=== PATIENT | male | born 1975 | race African-American/Black ===

== ENCOUNTER 2023-11-27 22:58 | Emergency (ER) | payer SELFPAY ==
[2023-11-27] MEDS ORDERED: GABAPENTIN 300 MG CAP ONE (23:06)
[2023-11-27] MEDS ORDERED: KETOROLAC 30 MG/ML INJ ONE (23:07)
[2023-11-27] MEDS ORDERED: dexAMETHasone 10 MG/ML VIAL ONE (23:07)
[2023-11-28] MEDS ORDERED: HYDROCODONE/APAP 7.5/325 MG TAB ONE (00:22)
[2023-11-28] MEDS ORDERED: LIDOCAINE 4% PATCH ONE (00:22)
--- NOTE | 2023-11-28 00:52 | ER ---
Nurse's Notes [facility] Name: Sandra Rodriguez Age: 48 yrs Sex: Male : 1975 Arrival Date: 11/27/2023 Time: 22:58 Bed 17 Private MD: Diagnosis: Lumbago with sciatica, left side Presentation: 11/26 23:01 Chief complaint: EMS states: left sided pain, extending from buttocks to hamstring tm6 10/10. Coronavirus screen: Vaccine status: Patient reports receiving the 2nd dose of the covid vaccine. Ebola Screen: Patient negative for fever greater than or equal to 101.5 degrees Fahrenheit, and additional compatible Ebola Virus Disease symptoms Patient denies exposure to infectious person. Patient denies travel to an Ebola-affected area in the 21 days before illness onset. No symptoms or risks identified at this time. Initial Sepsis Screen: Does the patient meet any 2 criteria? No. Patient's initial sepsis screen is negative. Does the patient have a suspected source of infection? No. Patient's initial sepsis screen is negative. Risk Assessment: Do you want to hurt yourself or someone else? Patient reports no desire to harm self or others. Onset of symptoms was November 27, 2023. 23:01 Method Of Arrival: EMS: [facility] tm6 23:01 Acuity: PHILLIP 3 tm6 Triage Assessment: 23:02 General: Appears distressed, Behavior is cooperative. Pain: Complains of pain in tm6 buttocks and left leg Pain does not radiate. Pain currently is 10 out of 10 on a pain scale. Quality of pain is described as sharp, shooting, stabbing. EENT: No signs and/or symptoms were reported regarding the EENT system. Neuro: Level of Consciousness is awake, alert, obeys commands, Oriented to person, place, time, situation. Cardiovascular: Patient's skin is warm and dry. Respiratory: Airway is patent Respiratory effort is even, unlabored, Respiratory pattern is regular, symmetrical. GI: No signs and/or symptoms were reported involving the gastrointestinal system. Abdomen is flat, non-distended. : No deficits noted. No signs and/or symptoms were reported regarding the genitourinary system. Derm: No signs and/or symptoms reported regarding the dermatologic system. Musculoskeletal: Reports pain in buttocks and left leg Pain is 10 out of 10 on a pain scale. Historical: - Allergies: 23:02 No Known Allergies; tm6 - PMHx: 23:02 None; tm6 - PSHx: 23:02 Appendectomy; tm6 - Immunization history:: Client reports receiving the 2nd dose of the Covid vaccine. - Infectious Disease History:: Denies. - Social history:: Smoking status: Patient reports the use of cigarette tobacco products, smokes one-half pack cigarettes per day, Patient uses alcohol, occasionally. Screenin:04 [facility] ED Fall Risk Assessment (Adult) History of falling in the last 3 months, tm6 including since admission No falls in past 3 months (0 pts) Confusion or Disorientation No (0 pts) Intoxicated or Sedated No (0 pts) Impaired Gait No (0 pts) Mobility Assist Device Used No (0 pt) Altered Elimination No (0 pt) Score/Fall Risk Level 0 - 2 = Low Risk Oriented to surroundings, Maintained a safe environment, Educated pt \T\ family on fall prevention, incl call for assistance when getting out of bed. Abuse screen: Denies threats or abuse. Denies injuries from another. Nutritional screening: No deficits noted. Tuberculosis screening: No symptoms or risk factors identified. Assessment: 23:04 Reassessment: see triage assessment. tm6 11/27 00:31 Reassessment: Patient and/or family updated on plan of care and expected duration. Pain tm6 level reassessed. Patient is alert, oriented x 3, equal unlabored respirations, skin warm/dry/pink. 01:02 Reassessment: Patient and/or family updated on plan of care and expected duration. Pain tm6 level reassessed. Patient is alert, oriented x 3, equal unlabored respirations, skin warm/dry/pink. Vital Signs: 11/26 23:01 BP 189 / 98; Pulse 68; Resp 19; Temp 98(O); Pulse Ox 100% on R/A; Weight 79.38 kg; tm6 Height 5 ft. 8 in. ; Pain 10/10; 11/27 00:31 BP 149 / 100; Pulse 73; Pulse Ox 98% on R/A; Pain 8/10; tm6 01:01 BP 138 / 88; Pulse 73; Resp 17; Temp 98; Pulse Ox 98% on R/A; Pain 5/10; tm6 11/26 23:01 Body Mass Index 26.61 (79.38 kg, 172.72 cm) tm6 11/26 23:01 Pain Scale: Adult tm6 11/27 00:31 Pain Scale: Adult tm6 01:01 Pain Scale: Adult tm6 ED Course: 11/26 22:58 Patient arrived in ED. sb4 22:58 Umu Watson PA-C is PHCP. sb4 22:58 Bradley Gutierrez MD is Attending Physician. sb4 23:00 Mona Winn, CORI is Primary Nurse. tm6 23:02 Triage completed. tm6 23:02 Arm band placed on right wrist. tm6 23:04 Patient has correct armband on for positive identification. Bed in low position. Call tm6 light in reach. Side rails up X2. Provided Education on: use of call ruiz. Client placed on continuous cardiac and pulse oximetry monitoring. NIBP monitoring applied. Pulse ox on. NIBP on. Door closed. Noise minimized. Pillow given. 11/27 01:08 No provider procedures requiring assistance completed. Patient did not have IV access tm6 during this emergency room visit. Administered Medications: 11/26 23:15 Drug: Dexamethasone IM 10 mg IM once Route: IM; Site: right deltoid; tm6 23:15 Drug: Ketorolac IM 30 mg IM once Route: IM; Site: left deltoid; tm6 23:15 Drug: Gabapentin PO 300 mg PO once Route: PO; tm6 11/27 00:29 Drug: Lidoderm Topical Patch 5 % (700 mg/patch) 1 patches Topical once; leave on for 12 tm6 hours; cover most painful area; may cut into smaller pieces Route: Topical; Site: affected area; 00:29 Drug: Hydrocodone-Acetaminophen PO (7.5 mg-325 mg) 1 tabs PO once Route: PO; tm6 Medication: 11/26 23:04 VIS not applicable for this client. tm6 Outcome: 11/27 00:52 Discharge ordered by . sb4 01:08 Discharged to home via wheelchair, with family, tm6 01:08 Condition: stable 01:08 Discharge instructions given to patient, Instructed on discharge instructions, follow up and referral plans. medication usage, Demonstrated understanding of instructions, follow-up care, medications, Prescriptions given X 2, 01:09 Patient left the ED. tm6 Signatures: Umu Watson PA-C PA-C sb4 Mona Winn, RN RN tm6
--- NOTE | 2023-11-28 00:52 | EDPHYS ---
Physician Documentation [facility] Name: Sandra Rodriguez Age: 48 yrs Sex: Male : 1975 Arrival Date: 11/27/2023 Time: 22:58 Bed 17 Private MD: ED Physician Bradley Gutierrez HPI: 11/26 23:12 This 48 yrs old Black Male presents to ER via EMS with complaints of back pain. sb4 23:12 The patient presents with pain that is acute, with no known mechanism of injury. The sb4 symptoms are located in the left low back. The pain radiates to the left leg. The problem was sustained without known cause. Onset: The symptoms/episode began/occurred 1 week(s) ago. Modifying factors: The patient symptoms are alleviated by nothing, the patient symptoms are aggravated by any movement. Associated signs and symptoms: The patient has no apparent associated signs or symptoms. The patient has experienced a previous episode, last week. The patient has been recently seen at the [facility] Emergency Department, last week, for similar complaints X-rays were performed, was given a prescription for pain medications. Historical: - Allergies: 23:02 No Known Allergies; tm6 - PMHx: 23:02 None; tm6 - PSHx: 23:02 Appendectomy; tm6 - Immunization history:: Client reports receiving the 2nd dose of the Covid vaccine. - Infectious Disease History:: Denies. - Social history:: Smoking status: Patient reports the use of cigarette tobacco products, smokes one-half pack cigarettes per day, Patient uses alcohol, occasionally. ROS: 23:12 Constitutional: Negative for fever, chills, and weight loss, sb4 23:12 Back: Positive for pain at rest, pain with movement, radiated pain, of the left low back, 23:12 All other systems are negative, Exam: 23:12 Head/Face: Normocephalic, atraumatic. Eyes: Extra-ocular motions intact. Periorbital sb4 areas with no swelling, redness, or edema. ENT: Mucous membranes moist. Skin: Warm, dry with normal turgor. Normal color with no rashes, no lesions, and no evidence of cellulitis. Neuro: Awake and alert, GCS 15, oriented to person, place, time, and situation. Motor strength 5/5 in all extremities. Sensory grossly intact. 23:12 Constitutional: The patient appears alert, awake, uncomfortable, 23:12 Back: pain, that is moderate, of the left low back, ROM is painful, normal spinal alignment noted, CVA tenderness, is absent, vertebral tenderness, is not appreciated, muscle spasm, is not present, Vital Signs: 23:01 BP 189 / 98; Pulse 68; Resp 19; Temp 98(O); Pulse Ox 100% on R/A; Weight 79.38 kg; tm6 Height 5 ft. 8 in. ; Pain 10/10; 11/27 00:31 BP 149 / 100; Pulse 73; Pulse Ox 98% on R/A; Pain 8/10; tm6 01:01 BP 138 / 88; Pulse 73; Resp 17; Temp 98; Pulse Ox 98% on R/A; Pain 5/10; tm6 11/26 23:01 Body Mass Index 26.61 (79.38 kg, 172.72 cm) tm6 11/26 23:01 Pain Scale: Adult tm6 11/27 00:31 Pain Scale: Adult tm6 01:01 Pain Scale: Adult tm6 MDM: 11/26 22:58 Patient medically screened. sb4 11/27 00:51 Data reviewed: vital signs, nurses notes, and as a result, I will discharge patient. sb4 Counseling: I had a detailed discussion with the patient and/or guardian regarding the historical points, exam findings, and any diagnostic results supporting the discharge/admit diagnosis, the need for outpatient follow up, for definitive care, a orthopedic surgeon, to return to the emergency department if symptoms worsen or persist or if there are any questions or concerns that arise at home. Administered Medications: 11/26 23:15 Drug: Dexamethasone IM 10 mg IM once Route: IM; Site: right deltoid; 23:15 Drug: Ketorolac IM 30 mg IM once Route: IM; Site: left deltoid; 23:15 Drug: Gabapentin PO 300 mg PO once Route: PO; tm6 11/27 00:29 Drug: Lidoderm Topical Patch 5 % (700 mg/patch) 1 patches Topical once; leave on for 12 tm6 hours; cover most painful area; may cut into smaller pieces Route: Topical; Site: affected area; 00:29 Drug: Hydrocodone-Acetaminophen PO (7.5 mg-325 mg) 1 tabs PO once Route: PO; tm6 Disposition: 05:19 Co-signature as Attending Physician, Bradley Gutierrez MD I agree with the assessment sp4 and plan of care. I reviewed the patient's care provided by the Advanced Practice Provider and agree with the diagnosis and treatment plan. Chart complete. Disposition Summary: 11/28/23 00:52 Discharge Ordered Notes: Location: Home sb4 Problem: an acute exacerbation sb4 Symptoms: have improved sb4 Condition: Stable sb4 Diagnosis - Lumbago with sciatica, left side sb4 Followup: sb4 - With: Private Physician - When: 2 - 3 days - Reason: Recheck today's complaints, Re-evaluation by your physician Discharge Instructions: - Discharge Summary Sheet sb4 - Sciatica sb4 - Back Exercises, [id number] sb4 Forms: - Patient Portal Instructions sb4 - Leadership Thank You Letter sb4 - Work release form tm6 Prescriptions: - gabapentin 100 mg Oral capsule - take 2 capsule ORAL route every 8 hours; 20 capsule; Refills: 0, Product sb4 Selection Permitted - Diclofenac Sodium 75 mg Oral Tablet Sustained Release - take 1 tablet ORAL route 2 times per day; 30 tablet; Refills: 0, Product sb4 Selection Permitted Signatures: Umu Watson PA-C PA-C sb4 Bradley Gutierrez MD MD sp4 Mona Winn RN RN tm6
[2023-11-28 06:04] VITALS: TEMP 98
[2023-11-28 06:05] VITALS: O2SAT 98
[2023-11-28 06:06] VITALS: BP 138/88
== END 2023-11-28 01:09 | disposition home or self-care (01) ==
LOC: ER 22:58
DX: M54.42 Lumbago with sciatica, left side (principal)
CPT/HCPCS: 96372; 99284; J1100; J2001